=== PATIENT | female | born 1990 | race Caucasian/White ===

== ENCOUNTER 2017-05-06 15:46 | Emergency (ER) | payer MEDICAID ==
[~2017-05-06] VITALS: Ht 167.6 cm; Wt 113.4 kg
[2017-05-06 15:57] VITALS: BP 125/66
== END 2017-05-06 19:53 | disposition left against medical advice (07) ==
LOC: ER 15:46
DX: Z04.8 Encounter for examination and observation for other specified reasons (principal); Z53.21 Procedure and treatment not carried out due to patient leaving prior to being seen by health care provider